=== PATIENT | male | born 1995 | race Caucasian/White ===

== ENCOUNTER 2019-01-24 12:37 | Emergency (ER) | payer MEDICAID ==
[~2019-01-24] VITALS: Ht 152.4 cm; Wt 71.2 kg
[2019-01-24 12:43] VITALS: Ht 152.4 cm; Wt 71.2 kg
[2019-01-24 13:59] VITALS: BP 152/85
== END 2019-01-24 13:59 | disposition home or self-care (01) ==
LOC: ED 12:37
DX: R55 Syncope and collapse (principal); R11.2 Nausea with vomiting, unspecified; Z90.89 Acquired absence of other organs
CPT/HCPCS: Q0162